=== PATIENT | male | born 2000 | race Caucasian/White ===

== ENCOUNTER 2020-07-15 14:36 | Emergency (ER) | payer OTHER ==
[~2020-07-15] VITALS: Ht 185.4 cm; Wt 65.0 kg
[2020-07-15 14:37] VITALS: BP 141/94
--- NOTE | 2020-07-15 14:47 | NUR ---
PT C/O LEFT LOWER BACK PAIN, STATES IT RADIATES TO SHOULDER BLADE AND HEAL. CALL LIGHT WITHIN REACH. AT BS
--- NOTE | 2020-07-15 15:00 | NUR ---
Patient given discharge instructions and they have confirmed that they understand the instructions. Patient ambulatory with steady gait.
== END 2020-07-15 15:01 | disposition home or self-care (01) ==
LOC: ED 14:55
DX: S39.012A Strain of muscle, fascia and tendon of lower back, initial encounter (principal); X50.0XXA Overexertion from strenuous movement or load, initial encounter; Y93.89 Activity, other specified; Y92.69 Other specified industrial and construction area as the place of occurrence of the external cause; Y99.0 Civilian activity done for income or pay
CPT/HCPCS: 99281